=== PATIENT | female | born 2000 | race African-American/Black ===

== ENCOUNTER 2023-09-01 18:01 | Observation (INO) | payer MEDICAID ==
[~2023-09-01] VITALS: Ht 167.6 cm; Wt 63.5 kg
[2023-09-01] MEDS ORDERED: FERR325T6 PO (19:29)
[2023-09-01] MEDS ORDERED: PREN1TAB23 PO (19:29)
== END 2023-09-01 21:15 | disposition home or self-care (01) ==
LOC: 8 EST LDRP 18:01
PROVIDERS: ADMIT Obstetrics & Gynecology; ATTEND Obstetrics & Gynecology
DX: O46.93 Antepartum hemorrhage, unspecified, third trimester (principal); O26.893 Other specified pregnancy related conditions, third trimester; R10.9 Unspecified abdominal pain; Z3A.37 37 weeks gestation of pregnancy
CPT/HCPCS: 76818; 76805; G0378 ×2; 99281

== ENCOUNTER 2023-09-03 18:32 | Observation (INO) | payer MEDICAID ==
[~2023-09-03] VITALS: Ht 167.6 cm; Wt 64.0 kg
[~2023-09-03 18:32] MED LIST: FERR325T6 PO; PREN1TAB23 PO
== END 2023-09-03 20:00 | disposition home or self-care (01) ==
LOC: 8 EST LDRP 18:32
PROVIDERS: ADMIT Specialist; ATTEND Specialist
DX: O26.893 Other specified pregnancy related conditions, third trimester (principal); R10.9 Unspecified abdominal pain; O62.9 Abnormality of forces of labor, unspecified; Z3A.39 39 weeks gestation of pregnancy
CPT/HCPCS: 59025; G0378; 99281; G0379